=== PATIENT | female | born 2000 | race African-American/Black ===

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

== ENCOUNTER 2018-02-24 11:49 | Emergency (ER) | payer MEDICAID ==
[~2018-02-24] VITALS: Ht 167.6 cm; Wt 62.6 kg
== END 2018-02-24 13:00 | disposition home or self-care (01) ==
LOC: ER 11:49
DX: J30.9 Allergic rhinitis, unspecified (principal); Z88.2 Allergy status to sulfonamides; Z88.5 Allergy status to narcotic agent
CPT/HCPCS: 99283; A4663

== ENCOUNTER → 2018-06-28 | Emergency (ER) | payer MEDICAID ==
[~2018-06-28] VITALS: Ht 167.6 cm; Wt 62.6 kg
[~2018-06-28] MED LIST: ONDANSETRON ODT 4 MG TAB.RAPDIS ONE; ONDANSETRON ODT 4 MG TAB.RAPDIS SL ONE
--- NOTE | 2018-06-28 12:21 | NUR ---
seen and examine by
--- NOTE | 2018-06-28 12:35 | NUR ---
Dcd instructions and prescription given to pt's mom who remains at bedside. Medicated for nausea/vomiting as ordered. leave room AAOX4. vitals stable.
== END | disposition home or self-care (01) ==
LOC: ER 12:03
DX: R11.2 Nausea with vomiting, unspecified (principal); Z88.2 Allergy status to sulfonamides; Z88.5 Allergy status to narcotic agent
CPT/HCPCS: A4663; Q0162

== ENCOUNTER 2018-08-02 21:04 | Emergency (ER) | payer MEDICAID ==
[~2018-08-02] VITALS: Ht 167.6 cm; Wt 62.6 kg
--- NOTE | 2018-08-02 21:29 | NUR ---
DR. MALLOY AT BEDSIDE FOR MSE.
[2018-08-02] MEDS ORDERED: IBUPROFEN 800 MG TABLET ONE (21:36)
[2018-08-02] MEDS ORDERED: IBUPROFEN 800 MG TABLET PO ONE (21:45)
[2018-08-02 22:57] VITALS: BP 96/70
--- NOTE | 2018-08-02 22:57 | NUR ---
Patient discharged to home in stable conditon. Written and verbal after care instructions given. Patient verbalizes understanding of instructions. PATIENT LEFT WITH STABLE GAIT.
== END 2018-08-02 22:58 | disposition home or self-care (01) ==
LOC: ER 21:05
DX: S20.229A Contusion of unspecified back wall of thorax, initial encounter (principal); Z88.2 Allergy status to sulfonamides; Z88.5 Allergy status to narcotic agent; W01.198A Fall on same level from slipping, tripping and stumbling with subsequent striking against other object, initial encounter; Y93.89 Activity, other specified; Y92.89 Other specified places as the place of occurrence of the external cause; Y99.8 Other external cause status
CPT/HCPCS: 72072; A4663

== ENCOUNTER 2018-11-07 10:57 | Emergency (ER) | payer MEDICAID ==
[~2018-11-07] VITALS: Ht 167.6 cm; Wt 60.8 kg
--- NOTE | 2018-11-07 11:13 | NUR ---
PT A/OX4, PRESENTS TO THE ER C/O GENEARLIZED BODY ITCHING AND DIARRHEA X 2 DAYS. PT REPORTS SHE WAS PRESCRIBED AMOXICILLIN FOR RESPIRATORY INFECTION 2 DAYS AGO AND HAS BEEN EXPERIENCING ITCHING AND DIARRHEA SINCE. PT REPORTS SHE SELF-ADMINISTERED BENDARYL TO ALLEVIATE THE ITCHINESS BUT IS CONCERNED ABOUT WHETHER THE AMOXICILLIN HAS TRIGGERED AN ALLERGIC REACTION. VSS. PT DENIES PAIN, C/P, SOB, N/V/D, DIZZINESS, HEADACHE.
[2018-11-07] MEDS ORDERED: FLUCONAZOLE 100 MG TABLET PO ONE (12:00)
[2018-11-07] MEDS ORDERED: predniSONE 20 MG TABLET PO ONE (12:00)
[2018-11-07] MEDS ORDERED: FLUCONAZOLE 100 MG TABLET ONE (12:04)
[2018-11-07] MEDS ORDERED: predniSONE 20 MG TABLET ONE (12:05)
[2018-11-07 12:11] VITALS: BP 105/66
--- NOTE | 2018-11-07 12:11 | NUR ---
Patient discharged to home in stable conditon. Written and verbal after care instructions given. Patient verbalizes understanding of instructions. ALL BELONGINGS W/ PT. PT SELF-AMBULATED W/O DIFFICULTY.
== END 2018-11-07 12:12 | disposition home or self-care (01) ==
LOC: ER 10:57
DX: J45.909 Unspecified asthma, uncomplicated (principal); R19.7 Diarrhea, unspecified; L29.9 Pruritus, unspecified; T36.0X5A Adverse effect of penicillins, initial encounter; Z88.2 Allergy status to sulfonamides; Z88.5 Allergy status to narcotic agent; Y92.89 Other specified places as the place of occurrence of the external cause
CPT/HCPCS: 99283; J7512; A4663

== ENCOUNTER 2019-01-17 21:20 | Emergency (ER) | payer MEDICAID ==
[~2019-01-17] VITALS: Ht 165.1 cm; Wt 60.8 kg
--- NOTE | 2019-01-17 22:21 | NUR ---
Patient discharged to home in stable conditon WITH MOTHER ALANA PATIENT HOME. Written and verbal after care instructions given. Patient verbalizes understanding of instructions. WALKED OUT OF ER WITH NO DISTRESS NOTED
[2019-01-17 22:22] VITALS: BP 138/77
== END 2019-01-17 22:22 | disposition home or self-care (01) ==
LOC: ER 21:21
DX: R07.89 Other chest pain (principal); Z88.2 Allergy status to sulfonamides; Z88.8 Allergy status to other drugs, medicaments and biological substances
CPT/HCPCS: 93005; A4663

== ENCOUNTER 2019-07-16 17:12 | Emergency (ER) | payer MEDICAID ==
[~2019-07-16] VITALS: Ht 167.6 cm; Wt 62.6 kg
[2019-07-16] MEDS ORDERED: PENICILLIN G BENZATHINE 2.4 MMU/4 ML DISP.SYRIN IM ONE ×2 (17:45→18:07)
--- NOTE | 2019-07-16 18:17 | NUR ---
PT WAS EVALUATED BY DR LAROSE. PT WAS D/C'd TO HOME. D/C INSTRUCTIONS GIVEN TO THE PT.
[2019-07-16 18:19] VITALS: BP 129/78
== END 2019-07-16 18:19 | disposition home or self-care (01) ==
LOC: ER 17:12
DX: J02.9 Acute pharyngitis, unspecified (principal); Z88.2 Allergy status to sulfonamides; Z88.5 Allergy status to narcotic agent
CPT/HCPCS: A4663